=== PATIENT | female | born 1985 | race Caucasian/White ===

== ENCOUNTER 2017-03-10 18:43 | Emergency (ER) ==
--- NOTE | 2017-03-10 18:51 | ED.PDOC ---
General ED Provider: Dr. BRENNA SOARES-ER Chief Complaint: Tooth Problem Stated Complaint: my tooth hurts Time Seen by Physician: 18:49 Mode of Arrival: Walk-In Information Source: Patient Exam Limitations: No limitations Nursing and Triage Documentation Reviewed and Agree: Yes EENT Complaint Exam - Dental/Oral Complaint/Exam Mechanism of Injury: No known trauma Onset/Duration: 24hrrs Symptoms Are: Still present Timing: Constant Initial Severity: Mild Current Severity: Mild Location: left upper premolar Character: Reports: Dull, Aching, Throbbing Aggravating: Reports: Heat, Cold, Chewing Alleviating: Reports: None Associated Signs and Symptoms: Reports: Swelling. Denies: Discharge, Fever, Foul odor, Foul taste in mouth Tooth Findings: Present: Percussion tenderness, Gross caries Cervical Lymphadenopathy Present: No Facial Swelling Present: No Bleeding Present: No Oropharynx Findings: Absent: Clots, Active bleeding Septal Hematoma: No Foreign Body Present: No Dysphagia Present: No Drooling Present: No Asymmetrical Tonsillar Swelling Present: No Uvula Midline: Yes Stefany-tonsillar Fluctuence: No Trismus Present: No Palatal Petechiae Present: No Scarlatinaform Rash Present: No Differential Diagnoses: Dental Caries Review of Systems - Review Of Systems Constitutional: Reports: No symptoms Eyes: Reports: No symptoms Ears, Nose, Mouth, Throat: Reports: Mouth pain Respiratory: Reports: No symptoms Cardiac: Reports: No symptoms GI: Reports: No symptoms : Reports: No symptoms Musculoskeletal: Reports: No symptoms Skin: Reports: No symptoms Neurological: Reports: No symptoms Endocrine: Reports: No symptoms Hematologic/Lymphatic: Reports: No symptoms All Other Systems: Reviewed and Negative Past Medical History - Past Medical History Previously Healthy: Yes Endocrine: Reports: Unknown Cardiovascular: Reports: Unknown Respiratory: Reports: Unknown Hematological: Reports: Unknown Gastrointestinal: Reports: Unknown Genitourinary: Reports: Unknown Neuro/Psych: Reports: Unknown Musculoskeletal: Reports: Unknown Cancer: Reports: Unknown Last Menstrual Period: last week - Surgical History General Surgical History: Reports: Unknown - Family History Family History: Reports: Unknown - Social History Lives: With family Physical Exam - Physical Exam Appearance: Well-appearing, No pain distress, Well-nourished Pain Distress: Moderate Eyes: [place] ENT: Ears normal, Nose normal, Oropharynx normal Neck: Supple Respiratory: Airway patent, Breath sounds clear, Breath sounds equal, Respirations nonlabored Cardiovascular: RRR, Pulses normal, No rub, No murmur GI/: Soft, Nontender, No masses, Bowel sounds normal, No Organomegaly Musculoskeletal: Normal strength, ROM intact, No edema, No calf tenderness Skin: Warm, Dry, Normal color Neurological: Sensation intact, Motor intact, Reflexes intact, Cranial nerves intact, Alert, Oriented Psychiatric: Affect appropriate, Mood appropriate Critical Care Note - Critical Care Note Total Time (mins): 0 Departure - Departure Time of Disposition: 18:51 Disposition: HOME SELF-CARE Discharge Problem: Toothache Instructions: Toothache (ED) Condition: Good Pt referred to PMD for follow-up: Yes Additional Instructions: amoxil 500mg tid x 7 days--toradol 10mg qid prn pain #16--f/u [facility] dentist Allergies/Adverse Reactions: Allergies No Known Allergies Allergy (Unverified 03/10/17 18:51) Disposition Discussed With: Patient, Family
[2017-03-10 18:53] VITALS: BP 145/95; TEMP 98; BMI 42.3
== END 2017-03-10 18:58 | disposition home or self-care (01) ==
LOC: ED 18:43
DX: K08.89 Other specified disorders of teeth and supporting structures (principal); K02.7 Dental root caries
CPT/HCPCS: 99282